=== PATIENT | female | born 1945 ===

== ENCOUNTER 2025-06-05 12:01 | Outpatient (AMB) | payer OTHER, SELFPAY ==
--- NOTE | 2025-06-05 12:15 | A.OFFVIS_ITS ---
Intake Visit Reasons: 6 mo fu Allergies levofloxacin ([facility]) Allergy (Unknown, Verified 06/05/25 12:15) Unknown Medication List - Last Reconciled 06/05/25 by Corina Corbett CNP allopurinol 300 mg PO DAILY amitriptyline 150 mg (3 x 50 mg) PO BEDTIME 90 days atorvastatin 10 mg PO DAILY eletriptan mg PO empagliflozin (Jardiance) 10 mg PO DAILY esomeprazole magnesium 20 mg PO DAILY glipizide ER 10 mg PO DAILY nadolol 20 mg PO DAILY pregabalin 50 mg PO TID semaglutide (Ozempic) mg subcut HPI Comments Details: Headaches are okay, getting migraine about 2x/week. Uses eletriptan as needed with good relief. Had cortisone injections x2 for sciatica by [facility] [employer] [facility], last in 12/2024 which helped, but more pain lately, trying to wait until closer to holidays before getting another injection. Recently started on pregabalin by PCP. Numbness and tingling has been okay. No falls. Sleep was okay. Had LBP radiating down either leg. Completed 8 weeks of PT without any change in symptoms. She tried gabapentin, but it caused more headaches and she stopped medication.? LBP with pain going down BLE, no preceding accident or injury. Had intermittent pins and needles to left foot. Was using Aspercreme spray which helped some and Tylenol. Blood sugar controlled, last A1c 5.9. Getting light therapy treatment for eczema 1x/week which is helping. Mammogram and u/s were okay. Lot of stress related to adult daughters. is legally blind and she has to drive. Hx of diabetes, severe anemia, idiopathic cirrhosis, and is on iron pills. Stress tri ggers migraine, has health issues. No longer getting hand shocks. Has carpal tunnel syndrome R>L . [facility] Medical History (Updated 06/05/25 @ 12:20 by Corina Corbett CNP) Anxiety Gout Hypercholesteremia Diabetes Hypertension Review of Systems Const Denies chills, Denies daytime sleepiness, Denies difficulty sleeping, Denies fatigue, Denies fever(s), Denies frequent falls, Reports headache(s), Denies increased appetite, Denies poor appetite, Denies snoring, Denies weakness, Denies weight gain and Denies weight loss Eyes Denies loss of vision ENT Denies vertigo, Denies dizziness, Reports headache(s) and Denies neck pain Card Denies chest pain at rest, Denies chest pain with activity, Denies syncope, Denies leg edema, Denies palpitations, Denies dyspnea and Denies dyspnea on exertion Resp Denies cough, Denies dyspnea, Denies dyspnea on exertion and Denies snoring GI Denies abdominal pain, Denies constipation, Denies heartburn, Denies diarrhea and Denies nausea Denies urinary frequency, Denies urinary incontinence and Denies urinary urgency Musc Denies abnormal gait, Reports back pain, Denies myalgias, Denies arthralgias, Denies neck pain, Denies numbness, Reports radiating pain into limb and Denies tingling Neuro Denies abnormal gait, Denies vertigo, Denies dizziness, Denies syncope, Denies frequent falls, Reports headache(s), Denies lack of coordination, Denies loss of vision, Denies memory loss, Denies numbness, Denies Other visual disturbances, Denies restless legs, Denies seizure-like activity, Denies tingling, Denies paresthesias, Denies tremor(s) and Denies weakness Psych Denies anxiety, Denies depression, Denies auditory hallucinations, Denies memory loss and Denies visual hallucinations Endo Denies fatigue and Denies palpitations Physical Exam Const Other: General Appearance:? normal, in no acute distress. Heart:? S1, S2 normal, no murmurs. Lungs:? clear anteriorly and posteriorly. Musculoskeletal:? normal. Extremities:? no edema. Psych:? alert, oriented, cognitive function intact, cooperative with exam. Neuro Other: Abnormal Neurological Findings:?R IP 5-/5. Impaired vibratory sensation to bilateral feet.? Mental Status: alert and oriented X 3. Normal attention, orientation, memory, and affect. Cranial Nerves: Pupils are equal, round, and reactive to light. External ocular muscles are intact. Visual simms are full, no ptosis. Face is symmetrical, no facial weakness or droop. Facial sensations are normal. Tongue protrudes in midline. Palate elevates symmetrically. Shoulder shrugging is normal Motor Examination: As above. Sensory Exam: As above. Coordination: No ataxia. No titubation. Gait Exam: Within normal limits. Cerebellar Signs: [id number] and [id number] is normal. No dysdiadochokinesia. Extrapyramidal System: No tremor, rigidity with normal facial expressions. No bradykinesia. No bradyphrenia. Normal arm swing and posture. No propulsion or retropulsion. Speech: Normal. 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 Normal EMG in the L4-S1 innervated muscles. 04/20/2024 LS Spine MRI: Moderate multilevel degenerative disc disease, L3-4 concentric disc bulge moderate to severe canal stenosis with mild to moderate right and moderate to severe left foraminal narrowing, L4-5 concentric disc bulge moderate to severe canal stenosis and moderate bilateral foraminal narrowing greater on right Assessment & Plan Assessment & Plan (1) Migraine: Code(s): G43.909 - Migraine, unspecified, not intractable, without status migrainosus Category: Medical Qualifiers: Migraine type: unspecified Status migrainosus presence: without status migrainosus Intractability: not intractable Qualified Code(s): G43.909 - Migraine, unspecified, not intractable, without status migrainosus Plan: Continue amitriptyline 150mg 1 tablet at bedtime. Continue eletriptan 40mg 1 tablet as needed for migraine. (2) Lumbar radiculopathy: Code(s): M54.16 - Radiculopathy, lumbar region Category: Medical Plan Meds tried: gabapetin (increased headaches) Coding Level of Care Code Est Pt Level 4 (89460) Diagnoses Migraine without status migrainosus, not intractable, unspecified migraine type G43.909 Migraine type: unspecified Status migrainosus presence: without status migrainosus Intractability: not intractable Lumbar radiculopathy M54.16
== END 2025-06-05 12:33 | disposition home or self-care (01) ==
PROVIDERS: PCP Internal Medicine; Referring Provider Specialist; Visit Provider Registered Nurse
DX: G43.909 Migraine, unspecified, not intractable, without status migrainosus (principal); M54.16 Radiculopathy, lumbar region
CPT/HCPCS: 99214